=== PATIENT | female | born 1960 | race Caucasian/White ===

== ENCOUNTER → 2024-12-02 | Outpatient (CLI) | payer BC, SELFPAY ==
[2024-12-02 08:33] LABS: Misc Send Out* See Sep Rpt
== END | disposition home or self-care (01) ==
LOC: COPL 08:14
PROVIDERS: PCP Family Medicine; Referring Provider Registered Nurse; Visit Provider Registered Nurse
DX: Z80.3 Family history of malignant neoplasm of breast (principal)
CPT/HCPCS: 81162

== ENCOUNTER 2024-12-09 09:05 | Day surgery (SDC) | payer BC, SELFPAY ==
[2024-12-08 12:33] VITALS: BMI 31.6
[2024-12-09] VITALS (9 sets, daily range): BP systolic 128–159; BP diastolic 55–79; PULSE 60–78; RESP 11–18; TEMP 36.7–36.8; O2SAT 95–98; BMI 30.9
[2024-12-09] MEDS: SODIUM CHLORIDE 0.9% 500 ML 500 ML 20 ML IV (10:44)
[2024-12-09] MEDS: DiphenhydrAMINE INJ 50 MG/ML VIAL 25 MG IVP (10:45)
[2024-12-09] MEDS: MIDAZOLAM INJ 1 MG/ML VIAL 2 ML (ASD USE ONLY) 2 MG IVP (10:52)
[2024-12-09] MEDS: fentaNYL CIT INJ 50 mCg/ML AMP 2ML (ASD USE ONLY) IVP (10:52)
== END 2024-12-09 11:50 | disposition home or self-care (01) ==
PROVIDERS: PCP Family Medicine; Referring Provider Specialist; Visit Provider Specialist
PROC: 0DBE8ZX Excision of Large Intestine, Via Natural or Artificial Opening Endoscopic, Diagnostic (ICD-10-PCS; CPT 45380; principal; 2024-12-09 11:00)
DX: Z12.11 Encounter for screening for malignant neoplasm of colon (principal); D12.5 Benign neoplasm of sigmoid colon; D12.3 Benign neoplasm of transverse colon; K64.9 Unspecified hemorrhoids; K57.30 Diverticulosis of large intestine without perforation or abscess without bleeding; Z80.0 Family history of malignant neoplasm of digestive organs; E11.9 Type 2 diabetes mellitus without complications; E78.5 Hyperlipidemia, unspecified; Z79.02 Long term (current) use of antithrombotics/antiplatelets
CPT/HCPCS: 45385; 45380; J1200; J2250; J3010; J7040